=== PATIENT | male | born 1940 | race Caucasian/White ===

== ENCOUNTER 2018-06-07 19:46 | Inpatient (IN) | payer MEDICAID, OTHER ==
[2018-06-07] MEDS: CEFEPIME 2GM/50 ML (PMX) 50 ML IVPB (22:10)
[2018-06-07] MEDS: SODIUM CHLORIDE 0.9% 1L BAG IV* (22:10)
[2018-06-07] MEDS: LORAZEPAM 2 MG INJ IV (22:11)
[2018-06-07 22:27] LABS: ADD MAN DIFF? NO
[2018-06-07 22:28] LABS: WHITE BLOOD COUNT 7.8 10^3/ul (4.8-10.8)
[2018-06-07 22:28] LABS: BASOPHILS % 0.1 % (0.0-2.0); EOSINOPHILS # 0.3 10^3/ul (0.0-0.5); EOSINOPHILS % 3.9 % (0.0-7.0); HEMOGLOBIN 8.5 g/dl (14.0-18.0); LYMPHOCYTES # 2.2 10^3/ul (0.8-2.9); LYMPHOCYTES % 28.6 % (15.0-51.0); MEAN CORPUSCULAR HEMOGLOBIN 27.6 pg (29.0-33.0); MEAN CORPUSCULAR HGB CONC 31.5 g/dl (32.0-37.0); MEAN CORPUSCULAR VOLUME 87.7 fl (82.0-101.0); MEAN PLATELET VOLUME 10.2 fl (7.4-10.4); MONOCYTE # 0.6 10^3/ul (0.3-0.9); MONOCYTES % 8.1 % (0.0-11.0); NEUTROPHIL # 4.6 10^3/ul (1.6-7.5); NEUTROPHILS % 58.9 % (39.0-77.0); PLATELET COUNT 339 10^3/UL (140-415); RED BLOOD COUNT 3.08 10^6/ul (4.70-6.10); RED CELL DISTRIBUTION WIDTH 20.4 % (11.5-14.5)
[2018-06-07] MEDS: VANCOMYCIN 1 GM (PMX) 250 ML IVPB (22:41)
[2018-06-07 22:46] LABS: ALANINE AMINOTRANSFERASE 20 IU/L (13-69); ALBUMIN 3.9 g/dl (3.3-4.9); ALBUMIN/GLOBULIN RATIO 1.25; ALKALINE PHOSPHATASE 89 IU/L (42-121); ANION GAP 17 (5-13); ASPARTATE AMINO TRANSFERASE 19 IU/L (15-46); BLOOD UREA NITROGEN 77 mg/dl (7-20); CALCIUM 6.9 mg/dl (8.4-10.2); CARBON DIOXIDE 16 mmol/L (21-31); CHLORIDE 102 mmol/L (97-110); CREATININE 7.06 mg/dl (0.61-1.24); GLUCOSE 93 mg/dl (70-220); POTASSIUM 5.3 mmol/L (3.5-5.1); SODIUM 135 mmol/L (135-144)
[2018-06-07 22:48] LABS: INR 1.11; PROTIME 14.5 Sec (11.9-14.9); PT RATIO 1.1
[2018-06-07 22:49] LABS: PARTIAL THROMBOPLASTIN TIME 36.5 Sec (23.0-35.0)
[2018-06-07 22:56] LABS: TROPONIN-I 0.021 ng/ml (0.000-0.120)
[2018-06-07] MEDS ORDERED: ACETAMINOPHEN 325 MG TAB PO ×2 (23:00→23:30)
[2018-06-07] MEDS ORDERED: ONDANSETRON 4 MG INJ IV (23:00)
[2018-06-07] MEDS: NA BICARBONATE 8.4% 50 ML SYG IV (23:08)
[2018-06-07 23:11] LABS: ADD UMIC YES; UR ASCORBIC ACID NEGATIVE (NEGATIVE); UR BILIRUBIN (Dip) NEGATIVE (NEGATIVE); UR BLOOD (Dip) 1+ mg/dL (NEGATIVE); UR CLARITY CLEAR (CLEAR); UR COLOR STRAW (YELLOW); UR GLUCOSE (Dip) NEGATIVE (NEGATIVE); UR KETONES (Dip) NEGATIVE (NEGATIVE); UR LEUKOCYTE ESTERASE (Dip) NEGATIVE Leu/ul (NEGATIVE); UR NITRITE (Dip) NEGATIVE (NEGATIVE); UR RBC 0 /HPF (0-5); UR SPECIFIC GRAVITY (Dip) 1.006 (1.003-1.030); UR TOTAL PROTEIN (Dip) 2+ mg/dl (NEGATIVE); UR UROBILINOGEN (Dip) NEGATIVE (NEGATIVE); UR WBC 1 /HPF (0-5)
[2018-06-07] MEDS ORDERED: DOCUSATE SODIUM 100 MG CAP PO (23:30)
[2018-06-07] MEDS ORDERED: hydrALAzine 20 MG INJ IV (23:30)
[2018-06-07] MEDS ORDERED: NACL 0.9% 3 ML SYG IV (23:30)
[2018-06-07] MEDS ORDERED: BISACODYL (EC) 5 MG TAB PO (23:30)
[2018-06-07 23:35] LABS: UR BACTERIA FEW /HPF (NONE SEEN)
[2018-06-07 23:49] LABS: CREATININE,URINE RANDOM 36.48 mg/dl (20-370); PROTEIN/CREAT RATIO 2.63 RATIO
[2018-06-07 23:52] LABS: OSMOLALITY,URINE 257 mOsm/kg (250-1200)
[2018-06-07 23:57] LABS: OSMOLALITY 296 mOsm/kg (280-295)
[2018-06-08 00:09] LABS: SODIUM,URINE RANDOM 58 mmol/L (30-90)
[2018-06-08] MEDS: AMLODIPINE 2.5 MG TAB PO ×2 (00:11→08:24)
[2018-06-08] MEDS: FUROSEMIDE 40 MG INJ IV (00:11)
[2018-06-08 02:42] LABS: LACTIC ACID 0.7 mmol/L (0.5-2.0)
[2018-06-08] MEDS ORDERED: CITRIC ACID/NA CITRATE 30 ML CUP PO (05:30)
[2018-06-08 05:35] LABS: ADD MAN DIFF? NO; HAAIG REFLEX REFLEX FILED
[2018-06-08 05:46] LABS: WHITE BLOOD COUNT 5.7 10^3/ul (4.8-10.8)
[2018-06-08 05:46] LABS: EOSINOPHILS # 0.2 10^3/ul (0.0-0.5); EOSINOPHILS % 3.3 % (0.0-7.0); HEMATOCRIT 26.6 % (42.0-52.0); HEMOGLOBIN 8.5 g/dl (14.0-18.0); LYMPHOCYTES # 1.1 10^3/ul (0.8-2.9); LYMPHOCYTES % 19.9 % (15.0-51.0); MEAN CORPUSCULAR HEMOGLOBIN 28.1 pg (29.0-33.0); MEAN CORPUSCULAR VOLUME 87.8 fl (82.0-101.0); MEAN PLATELET VOLUME 10.2 fl (7.4-10.4); MONOCYTE # 0.5 10^3/ul (0.3-0.9); MONOCYTES % 7.9 % (0.0-11.0); NEUTROPHIL # 3.9 10^3/ul (1.6-7.5); NEUTROPHILS % 68.6 % (39.0-77.0); PLATELET COUNT 327 10^3/UL (140-415); RED BLOOD COUNT 3.03 10^6/ul (4.70-6.10); RED CELL DISTRIBUTION WIDTH 20.1 % (11.5-14.5)
[2018-06-08] MEDS ORDERED: HEPARIN 5,000 UNIT/0.5 ML VIAL ×2 (06:11→19:55)
[2018-06-08] MEDS: CITRIC ACID/SODIUM CITRATE 15 ML CUP PO (06:18)
[2018-06-08 06:24] LABS: ALANINE AMINOTRANSFERASE 18 IU/L (13-69); ALBUMIN 3.6 g/dl (3.3-4.9); ALBUMIN/GLOBULIN RATIO 1.12; ALKALINE PHOSPHATASE 80 IU/L (42-121); ANION GAP 14 (5-13); ASPARTATE AMINO TRANSFERASE 19 IU/L (15-46); BILIRUBIN,INDIRECT 0.2 mg/dl (0-1.1); BILIRUBIN,TOTAL 0.2 mg/dl (0.2-1.3); BLOOD UREA NITROGEN 73 mg/dl (7-20); CALCIUM 6.5 mg/dl (8.4-10.2); CARBON DIOXIDE 18 mmol/L (21-31); CHLORIDE 108 mmol/L (97-110); CHOL/HDL RATIO 3.4 RATIO; CHOLESTEROL 123 mg/dl (100-200); CREATININE 6.87 mg/dl (0.61-1.24); GLUCOSE 93 mg/dl (70-220); HDL CHOLESTEROL 36 mg/dl (31-75); LDL CHOLESTEROL,CALCULATED 73 mg/dl; MAGNESIUM 1.2 mg/dl (1.7-2.5); POTASSIUM 4.5 mmol/L (3.5-5.1); SODIUM 140 mmol/L (135-144); TOTAL PROTEIN 6.8 g/dl (6.1-8.1); TRIGLYCERIDES 70 mg/dl (0-149)
[2018-06-08] MEDS: HEPARIN 5,000 UNIT/1 ML VIAL SC ×3 (06:24→21:09)
[2018-06-08 06:52] LABS: HEPATITIS B SURFACE ANTIGEN NEGATIVE (NEGATIVE)
[2018-06-08 06:54] LABS: FERRITIN 50.8 ng/ml (11.1-264.0)
[2018-06-08 07:10] LABS: HEPATITIS B CORE ANTIBODY NEGATIVE (NEGATIVE); HEPATITIS C VIRAL ANTIBODY NEGATIVE (NEGATIVE)
[2018-06-08 07:20] LABS: HEMOGLOBIN A1C 5.6 % (0-5.9)
[2018-06-08 07:26] LABS: IRON 40 ug/dl (35-150)
[2018-06-08 07:36] LABS: % IRON SATURATION 14 % SAT (22-52); TOTAL IRON BINDING CAPACITY 276 ug/dl (241-421)
[2018-06-08 08:11] LABS: HEPATITIS B SURFACE ANTIBODY NEGATIVE (NEGATIVE)
[2018-06-08] MEDS: MAGNESIUM SULFATE 3 GM in DEXTROSE 5% 100 ML IVPB (11:46)
[2018-06-08] MEDS: CITRIC ACID/NA CITRATE 30 ML CUP PO ×2 (11:50→21:06)
[2018-06-08] MEDS: SOD CHLORIDE 0.45% 1,000 ML IV (13:34)
[2018-06-08] MEDS: SOD FERRIC GLUC COMPLX 125 MG in SOD CHLORIDE 0.9% 100 ML IVPB (17:01)
[2018-06-08] MEDS: EPOETIN 10000 UNITS/1 ML INJ (ESRD) SC (17:02)
[2018-06-08] MEDS: NA BICARBONATE 650 MG TAB PO (21:06)
[2018-06-09] MEDS: SOD CHLORIDE 0.45% 1,000 ML IV (02:50)
[2018-06-09] MEDS ORDERED: HEPARIN 5,000 UNIT/0.5 ML VIAL (04:33)
[2018-06-09] MEDS: HEPARIN 5,000 UNIT/1 ML VIAL SC ×2 (05:27→14:00)
[2018-06-09 05:42] LABS: ADD MAN DIFF? NO
[2018-06-09 05:59] LABS: BASOPHILS % 0.2 % (0.0-2.0); EOSINOPHILS # 0.2 10^3/ul (0.0-0.5); EOSINOPHILS % 2.9 % (0.0-7.0); HEMATOCRIT 25.4 % (42.0-52.0); HEMOGLOBIN 8.4 g/dl (14.0-18.0); LYMPHOCYTES # 1.3 10^3/ul (0.8-2.9); LYMPHOCYTES % 22.5 % (15.0-51.0); MEAN CORPUSCULAR HEMOGLOBIN 28.9 pg (29.0-33.0); MEAN CORPUSCULAR HGB CONC 33.1 g/dl (32.0-37.0); MEAN CORPUSCULAR VOLUME 87.3 fl (82.0-101.0); MEAN PLATELET VOLUME 10.2 fl (7.4-10.4); MONOCYTE # 0.6 10^3/ul (0.3-0.9); MONOCYTES % 10.5 % (0.0-11.0); NEUTROPHIL # 3.7 10^3/ul (1.6-7.5); NEUTROPHILS % 63.6 % (39.0-77.0); PLATELET COUNT 293 10^3/UL (140-415); RED BLOOD COUNT 2.91 10^6/ul (4.70-6.10); RED CELL DISTRIBUTION WIDTH 20.1 % (11.5-14.5)
[2018-06-09 05:59] LABS: WHITE BLOOD COUNT 5.8 10^3/ul (4.8-10.8)
[2018-06-09 06:09] LABS: ANION GAP 14 (5-13); BLOOD UREA NITROGEN 66 mg/dl (7-20); CALCIUM 6.8 mg/dl (8.4-10.2); CARBON DIOXIDE 20 mmol/L (21-31); CHLORIDE 106 mmol/L (97-110); CREATININE 6.69 mg/dl (0.61-1.24); GLUCOSE 94 mg/dl (70-220); POTASSIUM 4.5 mmol/L (3.5-5.1); SODIUM 140 mmol/L (135-144)
[2018-06-09 06:19] LABS: MAGNESIUM 1.9 mg/dl (1.7-2.5)
[2018-06-09 06:19] LABS: PHOSPHORUS 5.5 mg/dl (2.5-4.9)
[2018-06-09] MEDS: CITRIC ACID/NA CITRATE 30 ML CUP PO (09:01)
[2018-06-09] MEDS: NA BICARBONATE 650 MG TAB PO ×2 (09:01→13:45)
[2018-06-09] MEDS: AMLODIPINE 2.5 MG TAB PO (09:01)
[2018-06-09] MEDS: CALCIUM GLUCONATE 10% 1 GM in DEXTROSE 5% 100 ML IVPB (13:45)
== END 2018-06-09 19:00 | disposition home or self-care (01) | DRG 682 ==
LOC: 6WM 06-08 02:18 → E/R 19:46 → 6WM 06-08 02:20
DX: I12.0 Hypertensive chronic kidney disease with stage 5 chronic kidney disease or end stage renal disease (principal); N18.6 End stage renal disease; N17.9 Acute kidney failure, unspecified; E87.2 Acidosis; N03.9 Chronic nephritic syndrome with unspecified morphologic changes; E87.5 Hyperkalemia; Z87.891 Personal history of nicotine dependence; R13.10 Dysphagia, unspecified; D63.1 Anemia in chronic kidney disease
CPT/HCPCS: 36415; 70450; 71045; 76775; 80048; 80053; 80061; 81001; 81003; 82570; 82728; 83036; 83540; 83605; 83735; 83930; 83935; 84100; 84300; 84443; 84484; 85025; 85610; 85730; 86704; 86706; 86708; 86709; 86803; 87040; 87086; 87340; 93005; 96374; 96375; 99291-25

== ENCOUNTER 2018-07-17 17:06 | Inpatient (IN) | payer MEDICAID ==
[2018-07-17 20:02] LABS: ADD MAN DIFF? NO
[2018-07-17] MEDS: SOD CHLORIDE 0.9% 1,000 ML IV ×2 (20:09→22:35)
[2018-07-17 20:14] LABS: BASOPHILS % 0.2 % (0.0-2.0); EOSINOPHILS # 0.3 10^3/ul (0.0-0.5); EOSINOPHILS % 5.7 % (0.0-7.0); HEMATOCRIT 28.8 % (42.0-52.0); LYMPHOCYTES # 1.4 10^3/ul (0.8-2.9); LYMPHOCYTES % 25.9 % (15.0-51.0); MEAN CORPUSCULAR HEMOGLOBIN 29.9 pg (29.0-33.0); MEAN CORPUSCULAR HGB CONC 34.7 g/dl (32.0-37.0); MEAN CORPUSCULAR VOLUME 86.2 fl (82.0-101.0); MONOCYTE # 0.4 10^3/ul (0.3-0.9); MONOCYTES % 8.2 % (0.0-11.0); NEUTROPHIL # 3.1 10^3/ul (1.6-7.5); NEUTROPHILS % 59.6 % (39.0-77.0); PLATELET COUNT 269 10^3/UL (140-415); RED BLOOD COUNT 3.34 10^6/ul (4.70-6.10); RED CELL DISTRIBUTION WIDTH 17.3 % (11.5-14.5)
[2018-07-17 20:14] LABS: WHITE BLOOD COUNT 5.3 10^3/ul (4.8-10.8)
[2018-07-17 20:33] LABS: ALANINE AMINOTRANSFERASE 207 IU/L (13-69); ALBUMIN 4.1 g/dl (3.3-4.9); ALBUMIN/GLOBULIN RATIO 1.05; ALKALINE PHOSPHATASE 609 IU/L (42-121); ANION GAP 18 (5-13); ASPARTATE AMINO TRANSFERASE 168 IU/L (15-46); BILIRUBIN,TOTAL 0.5 mg/dl (0.2-1.3); BLOOD UREA NITROGEN 88 mg/dl (7-20); CALCIUM 7.3 mg/dl (8.4-10.2); CARBON DIOXIDE 17 mmol/L (21-31); CHLORIDE 96 mmol/L (97-110); CREATININE 8.82 mg/dl (0.61-1.24); GLUCOSE 115 mg/dl (70-220); LIPASE 434 U/L (23-300); POTASSIUM 3.5 mmol/L (3.5-5.1); SODIUM 131 mmol/L (135-144)
[2018-07-17] MEDS ORDERED: ACETAMINOPHEN 325 MG TAB PO ×2 (22:00)
[2018-07-17] MEDS ORDERED: ONDANSETRON 4 MG INJ IV (22:00)
[2018-07-17] MEDS ORDERED: ONDANSETRON 4 MG TAB PO (22:00)
[2018-07-17] MEDS: NACL 0.9% 3 ML SYG IV (22:35)
[2018-07-17] MEDS: HEPARIN 5,000 UNIT/1 ML VIAL SC (22:36)
[2018-07-17] MEDS: CITRIC ACID/NA CITRATE 30 ML CUP PO (22:40)
[2018-07-17] MEDS: AMLODIPINE 2.5 MG TAB PO (23:20)
[2018-07-17 23:59] LABS: ADD UMIC YES; UR ASCORBIC ACID NEGATIVE (NEGATIVE); UR BILIRUBIN (Dip) NEGATIVE (NEGATIVE); UR BLOOD (Dip) 1+ mg/dL (NEGATIVE); UR CLARITY CLEAR (CLEAR); UR COLOR YELLOW (YELLOW); UR GLUCOSE (Dip) 1+ mg/dL (NEGATIVE); UR KETONES (Dip) NEGATIVE (NEGATIVE); UR LEUKOCYTE ESTERASE (Dip) NEGATIVE Leu/ul (NEGATIVE); UR NITRITE (Dip) NEGATIVE (NEGATIVE); UR RBC 0 /HPF (0-5); UR SPECIFIC GRAVITY (Dip) 1.006 (1.003-1.030); UR TOTAL PROTEIN (Dip) 1+ mg/dl (NEGATIVE); UR UROBILINOGEN (Dip) NEGATIVE (NEGATIVE); UR WBC 0 /HPF (0-5)
[2018-07-18 05:44] LABS: ADD MAN DIFF? NO; HAAIG REFLEX REFLEX FILED
[2018-07-18 05:45] LABS: WHITE BLOOD COUNT 4.5 10^3/ul (4.8-10.8)
[2018-07-18 05:45] LABS: BASOPHILS % 0.2 % (0.0-2.0); EOSINOPHILS # 0.3 10^3/ul (0.0-0.5); EOSINOPHILS % 5.7 % (0.0-7.0); HEMATOCRIT 26.5 % (42.0-52.0); HEMOGLOBIN 9.2 g/dl (14.0-18.0); LYMPHOCYTES % 21.6 % (15.0-51.0); MEAN CORPUSCULAR HEMOGLOBIN 29.7 pg (29.0-33.0); MEAN CORPUSCULAR HGB CONC 34.7 g/dl (32.0-37.0); MEAN CORPUSCULAR VOLUME 85.5 fl (82.0-101.0); MEAN PLATELET VOLUME 10.5 fl (7.4-10.4); MONOCYTE # 0.4 10^3/ul (0.3-0.9); MONOCYTES % 8.6 % (0.0-11.0); NEUTROPHIL # 2.9 10^3/ul (1.6-7.5); NEUTROPHILS % 63.5 % (39.0-77.0); PLATELET COUNT 250 10^3/UL (140-415); RED CELL DISTRIBUTION WIDTH 17.2 % (11.5-14.5)
[2018-07-18 06:28] LABS: ALANINE AMINOTRANSFERASE 185 IU/L (13-69); ALBUMIN 3.7 g/dl (3.3-4.9); ALBUMIN/GLOBULIN RATIO 1.02; ALKALINE PHOSPHATASE 613 IU/L (42-121); ANION GAP 17 (5-13); ASPARTATE AMINO TRANSFERASE 155 IU/L (15-46); BILIRUBIN,TOTAL 0.7 mg/dl (0.2-1.3); CALCIUM 7.2 mg/dl (8.4-10.2); CARBON DIOXIDE 16 mmol/L (21-31); CHLORIDE 102 mmol/L (97-110); CREATININE 8.67 mg/dl (0.61-1.24); GLUCOSE 90 mg/dl (70-220); POTASSIUM 3.3 mmol/L (3.5-5.1); SODIUM 135 mmol/L (135-144); TOTAL PROTEIN 7.3 g/dl (6.1-8.1)
[2018-07-18] MEDS: HEPARIN 5,000 UNIT/1 ML VIAL SC ×3 (06:28→22:05)
[2018-07-18 06:35] LABS: HEPATITIS B SURFACE ANTIGEN NEGATIVE (NEGATIVE)
[2018-07-18 06:46] LABS: BLOOD UREA NITROGEN 82 mg/dl (7-20)
[2018-07-18 06:53] LABS: HEPATITIS B CORE ANTIBODY NEGATIVE (NEGATIVE); HEPATITIS C VIRAL ANTIBODY NEGATIVE (NEGATIVE)
[2018-07-18 07:06] LABS: HEMOGLOBIN A1C 5.5 % (0-5.9)
[2018-07-18 08:15] LABS: HEPATITIS B SURFACE ANTIBODY NEGATIVE (NEGATIVE)
[2018-07-18] MEDS: AMLODIPINE 2.5 MG TAB PO (08:16)
[2018-07-18] MEDS: NA BICARBONATE 650 MG TAB PO (08:16)
[2018-07-18] MEDS: SOD CHLORIDE 0.9% 1,000 ML IV ×2 (15:18→23:06)
[2018-07-18] MEDS: POTASSIUM CHLORIDE (SR) 10 MEQ TAB PO (15:25)
[2018-07-18] MEDS: INFLUENZA VIRUS VACCINE 0.5 ML (DISPENSING) IM* (15:27)
[2018-07-18] MEDS: EPOETIN 10000 UNITS/1 ML INJ (ESRD) SC (18:45)
[2018-07-19 05:18] LABS: ADD MAN DIFF? NO
[2018-07-19 05:22] LABS: WHITE BLOOD COUNT 4.5 10^3/ul (4.8-10.8)
[2018-07-19 05:22] LABS: BASOPHILS % 0.2 % (0.0-2.0); EOSINOPHILS # 0.2 10^3/ul (0.0-0.5); EOSINOPHILS % 5.1 % (0.0-7.0); HEMATOCRIT 24.6 % (42.0-52.0); HEMOGLOBIN 8.5 g/dl (14.0-18.0); LYMPHOCYTES # 1.2 10^3/ul (0.8-2.9); LYMPHOCYTES % 26.4 % (15.0-51.0); MEAN CORPUSCULAR HEMOGLOBIN 30.1 pg (29.0-33.0); MEAN CORPUSCULAR HGB CONC 34.6 g/dl (32.0-37.0); MEAN CORPUSCULAR VOLUME 87.2 fl (82.0-101.0); MEAN PLATELET VOLUME 10.3 fl (7.4-10.4); MONOCYTE # 0.4 10^3/ul (0.3-0.9); MONOCYTES % 9.8 % (0.0-11.0); NEUTROPHIL # 2.6 10^3/ul (1.6-7.5); NEUTROPHILS % 58.1 % (39.0-77.0); PLATELET COUNT 237 10^3/UL (140-415); RED BLOOD COUNT 2.82 10^6/ul (4.70-6.10); RED CELL DISTRIBUTION WIDTH 17.2 % (11.5-14.5)
[2018-07-19 05:40] LABS: IRON 80 ug/dl (35-150)
[2018-07-19 05:49] LABS: % IRON SATURATION 31 % SAT (22-52); TOTAL IRON BINDING CAPACITY 255 ug/dl (241-421)
[2018-07-19 06:11] LABS: ALANINE AMINOTRANSFERASE 139 IU/L (13-69); ALBUMIN 3.3 g/dl (3.3-4.9); ALBUMIN/GLOBULIN RATIO 0.94; ALKALINE PHOSPHATASE 504 IU/L (42-121); ANION GAP 19 (5-13); ASPARTATE AMINO TRANSFERASE 87 IU/L (15-46); BILIRUBIN,TOTAL 0.2 mg/dl (0.2-1.3); BLOOD UREA NITROGEN 70 mg/dl (7-20); CARBON DIOXIDE 15 mmol/L (21-31); CHLORIDE 104 mmol/L (97-110); CREATININE 7.95 mg/dl (0.61-1.24); GLUCOSE 84 mg/dl (70-220); MAGNESIUM 1.4 mg/dl (1.7-2.5); PHOSPHORUS 5.5 mg/dl (2.5-4.9); SODIUM 138 mmol/L (135-144); TOTAL PROTEIN 6.8 g/dl (6.1-8.1)
[2018-07-19 06:13] LABS: FERRITIN 63.7 ng/ml (11.1-264.0)
[2018-07-19] MEDS: HEPARIN 5,000 UNIT/1 ML VIAL SC (06:26)
[2018-07-19] MEDS: SOD CHLORIDE 0.9% 1,000 ML IV ×2 (06:30→13:34)
[2018-07-19] MEDS: NA BICARBONATE 650 MG TAB PO (09:05)
[2018-07-19] MEDS: AMLODIPINE 2.5 MG TAB PO (09:06)
[2018-07-21 05:22] LABS: PTH CALCIUM 6.9 mg/dL (8.6-10.3)
[2018-07-21 07:42] LABS: PTH INTACT 467 pg/mL (14-64)
== END 2018-07-19 15:25 | disposition home or self-care (01) | DRG 682 ==
LOC: E/R 17:06 → 2NE 21:39
DX: I12.0 Hypertensive chronic kidney disease with stage 5 chronic kidney disease or end stage renal disease (principal); N18.6 End stage renal disease; R19.7 Diarrhea, unspecified; R63.0 Anorexia; Z68.22 Body mass index [BMI] 22.0-22.9, adult; R74.0 Nonspecific elevation of levels of transaminase and lactic acid dehydrogenase [LDH]
CPT/HCPCS: 36415; 71045; 74176; 76705; 80053; 81001; 82728; 83036; 83540; 83690; 83735; 83970; 84100; 85025; 86704; 86706; 86709; 86803; 87340; 90686; 99285-25